=== PATIENT | male | born 1980 | race Hispanic/Latino ===

== ENCOUNTER 2020-08-18 09:24 | Emergency (ER) | payer OTHER ==
[2020-08-18 09:41] VITALS: BP 122/84
[2020-08-18] MEDS ORDERED: ASPIRIN 81 MG TAB CHEW PO ONE (10:45)
--- NOTE | 2020-08-18 10:48 | Emergency Department Report ---
ED General Adult HPI - General Chief complaint: Chest Pain Stated complaint: CHEST PAIN Time Seen by Provider: 08/18/20 10:44 Source: patient Mode of arrival: Ambulatory Limitations: No Limitations - History of Present Illness Initial comments: 39-year-old male patient with history of tobacco use presents to the emergency department with complaints of chest pain radiating to his neck and left upper extremity for 1 week with associated dyspnea. Symptoms are intermittent, unrelated to eating or exertion. Describes the chest pain as "burning/pressure ." No history of hypertension, hyperlipidemia, diabetes. No known family history of early heart disease. No venous thromboembolism risk factors identified on history. Denies fever, chills, cough, wheezing, palpitations, syncope, lower extremity pain/swelling. Denies all other complaints at this time. - Related Data Allergies Allergy/AdvReac Type Severity Reaction Status Date / Time No Known Allergies Allergy Verified 08/18/20 09:38 ED Review of Systems ROS: Stated complaint: CHEST PAIN Other details as noted in HPI Other: GENERAL: Negative for fever, chills, weight change, anorexia, fatigue. ENT: Negative for ear pain, difficulty hearing, sore throat, nasal congestion, epistaxis. CARDIOVASCULAR: Positive for chest pain. PULMONARY: Positive for dyspnea. GASTROINTESTINAL: Negative for abdominal pain, nausea, vomiting, diarrhea, constipation. MUSCULOSKELETAL: Negative for joint pain, joint swelling, myalgias, back pain, neck pain. NEUROLOGICAL: Negative for headache, seizure, syncope, paresthesias, weakness. INTEGUMENTARY: Negative for erythema, rash, diaphoresis, laceration, ecchymosis. HEMATOLOGICAL: Negative for hemoptysis, hematemesis, hematochezia, hematuria. PSYCHIATRIC: Negative for hallucinations, suicidal ideation, homicidal ideation, anxiety, depression. ED Past Medical Hx - Past Medical History Previous Medical History?: No - Surgical History Past Surgical History?: No - Social History Smoking Status: Current Some Day Smoker Substance Use Type: Alcohol ED Physical Exam - General Limitations: No Limitations - Other Other exam information: General: Awake and alert. No acute distress. Head: Atraumatic, normocephalic. Eyes: EOMI. Pupils are equal and round. Normal sclera and conjunctiva. ENT: Oral mucosa is moist. Normal pharyngeal exam. Neck: Supple. No lymphadenopathy. Pulmonary: No respiratory distress. Clear to auscultation bilaterally. Cardiac: Regular rate and rhythm. Pulses are palpable and equal bilaterally. No lower extremity cyanosis or edema. Skin: Warm and dry. No rashes. Abdomen: Soft, non-tender, non-protuberant. No guarding, rigidity, or rebound. Bowel sounds are normal. No organomegaly or masses noted. Back: Normal alignment. No CVA tenderness. Extremities: Symmetrical. Full range of motion intact. Neurological: Alert and oriented, appropriately interactive, no focal deficits. Psych: Cooperative. Appropriate mood and affect. Speech is evenly metered. Thoughts are logically construed. ED Course Vital Signs 08/18/20 09:38 Temperature 97.8 F Pulse Rate 69 Respiratory 16 Rate Blood Pressure 122/84 O2 Sat by Pulse 97 Oximetry ED Medical Decision Making - Lab Data Result diagrams: 08/18/20 11:17 08/18/20 11:17 - EKG Data 08/18/20 10:47 EKG shows normal sinus rhythm with a ventricular rate of 60 bpm. Normal axis. First-degree AV block with TX interval 208 ms. Good R wave progression. Early repolarization pattern without ST elevation in the anterolateral leads. EKG over read by attending emergency physician, who agrees with this interpretation. - Medical Decision Making Differential diagnosis including but not limited to: acute coronary syndrome, cardiac arrhythmia, pericarditis, pericardial effusion/cardiac tamponade, pneumonia, pneumothorax, pulmonary embolism, anxiety disorder, musculoskeletal chest wall pain Patient presents to the emergency department with signs and/or symptoms that arise low risk clinical suspicion for pulmonary embolism. The patient has none of the following clinical criteria: age >50, heart rate >100, room air O2 saturation <94%, history of DVT/PE, recent trauma/surgery, hemoptysis, exogenous hormone use, or signs/symptoms of DVT. As a result, this patient has very low probability of pulmonary embolism and further testing is not indicated. On re-evaluation, the patient is well-appearing, vital signs are stable, and pain is controlled. EKG without overt evidence of STEMI, Brugada syndrome, delta wave, significantly prolonged QT, or life-threatening arrhythmia. Supervising physician is in agreement with EKG interpretation. Initial troponin within normal limits. Chest x-ray is unremarkable. Low clinical suspicion for other life-threatening intrathoracic pathology including but not limited to: pulmonary embolism, aortic aneurysm/dissection, pneumothorax, or pneumonia. The patient is at low risk (0.9%-2.7%) of experiencing a major cardiac event within the next six weeks according to the HEART score guidelines. The patient has no known history of coronary artery disease and is therefore a candidate for risk stratification using the HEART pathway. It has been explained to the patient that the HEART score/pathway are adjunct decision-making tools and are not designed to replace clinical judgment. Patient has agreed to undergo additional testing as recommended by the HEART pathway guidelines. Repeat troponin within normal limits. History and exam findings are suggestive of musculoskeletal chest wall pain. Strict return precautions provided. Discussed the importance of prompt PCP follow-up. Additionally, it has been explained to the patient that the primary purpose of this evaluation was to identify whether or not an acute coronary syndrome was present, and that the results of todays evaluation do not reliably exclude underlying coronary artery disease. Patient expressed understanding and was given the opportunity to ask questions, all of which were satisfactorily answered prior to discharge home. Written instructions and appropriate prescriptions/referrals provided. Critical care attestation.: If time is entered above; I have spent that time in minutes in the direct care of this critically ill patient, excluding procedure time. ED Disposition Clinical Impression: Non-cardiac chest pain Disposition: DC-01 TO HOME OR SELFCARE Is pt being admited?: No Does the pt Need Aspirin: No Condition: Stable Instructions: Nonspecific Chest Pain, Adult Additional Instructions: Take Tylenol every 4 hours and Motrin every 8 hours as needed for pain. Apply heat to affected area as needed for pain. Follow-up with Dr. Rodríguez, primary care provider, this week. Call tomorrow to schedule an appointment. Return to the emergency department immediately for new or worsening symptoms. Specifically, return to the emergency department immediately for fever, difficulty breathing, worsening chest pain, vomiting, loss of consciousness, lower extremity pain/swelling, or any other concerns. Referrals: ANTWAN RODRÍGUEZ MD [Staff Physician] - 3-5 Days Time of Disposition: 15:44 HEART Score - HEART Score History: Slightly suspicious EKG: Normal Age: < 45 Risk factors: 1-2 risk factors Troponin: Troponin T < 0.010 ng/mL (0.00-0.029) 08/18/20 14:57 Troponin: < normal limit HEART Score: 1 - Critical Actions Critical Actions: 0-3 pts:0.9-1.7%risk of adverse cardiac event.Candidate for discharge
--- NOTE | 2020-08-18 11:12 | XRay Report ---
CHEST 2 VIEWS INDICATION / CLINICAL INFORMATION: chest pain. COMPARISON: None available. FINDINGS: SUPPORT DEVICES: None. HEART / MEDIASTINUM: No significant abnormality. LUNGS / PLEURA: No significant pulmonary or pleural abnormality. No pneumothorax. ADDITIONAL FINDINGS: No significant additional findings. IMPRESSION: 1. No acute findings. Signer Name: Roc Milton MD Signed: 08/18/2020 11:08 AM Workstation Name: [id number]
[2020-08-18 11:47] LABS: Basophils % (Auto) 0.3 % (0.0-1.8); Eosinophils % (Auto) 0.1 % (0.0-4.3); Hematocrit 45.1 % (35.5-45.6); Hemoglobin 15.8 gm/dl (11.8-15.2); Lymphocytes # (Auto) 1.8 K/mm3 (1.2-5.4); Lymphocytes % (Auto) 20.9 % (13.4-35.0); Mean Corpuscular HGB Conc 35 % (32-34); Mean Corpuscular Volume 91 fl (84-94); Monocytes # (Auto) 0.4 K/mm3 (0.0-0.8); Platelet Count 306 K/mm3 (140-440); Red Blood Count 4.99 M/mm3 (3.65-5.03); Red Cell Distribution Width 13.1 % (13.2-15.2)
[2020-08-18 12:23] LABS: Alanine Aminotransferase 25 units/L (7-56); Albumin 4.7 g/dL (3.9-5); Blood Urea Nitrogen 19 mg/dL (9-20); Calcium 9.5 mg/dL (8.4-10.2); Hemolysis Index 7
[2020-08-18 12:36] LABS: BUN/Creatinine Ratio 27
--- NOTE | 2020-08-18 17:38 | Electrocardiograph Report ---
[facility] Test Date: 2020-08-18 Test Time: 09:33:51 Pat Name: CHANCE EDMONDS Department: Room: Gender: M Director Global Development: KATERIN : 1980 Requested By: TAIWO KANG Order Number: [id number] Reading MD: Gibran Lock Measurements Intervals Bureau Rate: 60 P: 44 WA: 208 QRS: 59 QRSD: 106 T: 26 QT: 386 QTc: 386 Interpretive Statements Sinus rhythm Borderline prolonged WA interval No previous ECG available for comparison Electronically Signed On 08-18-2020 17:38:07 EDT by Gibran Lock
== END 2020-08-18 15:45 | disposition home or self-care (01) ==
LOC: ED 09:24
DX: R07.89 Other chest pain (principal); F17.200 Nicotine dependence, unspecified, uncomplicated
CPT/HCPCS: 36415; 71046; 80053; 83735; 84484; 85025; 93005